=== PATIENT | female | born 1990 | race Two or more races ===

== ENCOUNTER 2023-05-04 15:15 | Emergency (ER) | payer MEDICAID ==
[~2023-05-04] VITALS: Ht 162.6 cm; Wt 54.4 kg
--- NOTE | 2023-05-04 15:45 | NUR ---
lolis, from [place], admits on drinking alcohol this morning, BG 103
[2023-05-04] MEDS ORDERED: IV NS 0.9% 1,000 ML BAG IV ONE (17:00)
--- NOTE | 2023-05-04 17:40 | NUR ---
IV LINE AT RIGHT AC 20 G , INFUSING WELL
[2023-05-04 17:51] LABS: BASOPHILS % (AUTO) 0.2 % (0.0-2.0); EOSINOPHILS % (AUTO) 0.7 % (0.0-6.0); HEMATOCRIT 40 % (33-45); HEMOGLOBIN 13.4 g/dL (11.5-14.8); LYMPHOCYTES # (AUTO) 2.1 K/uL (0.8-4.8); LYMPHOCYTES % (AUTO) 23.2 % (20.0-44.0); MEAN CORPUSCULAR HGB CONC 33 g/dl (31.0-36.0); MEAN CORPUSCULAR VOLUME 87 fL (82-100); MONOCYTES # (AUTO) 0.5 K/uL (0.1-1.30); MONOCYTES % (AUTO) 5.1 % (2.0-12.0); NEUTROPHILS # (AUTO) 6.4 K/uL (1.8-8.9); NEUTROPHILS % (AUTO) 70.8 % (43.0-81.0); PLATELET COUNT (AUTO) 271 K/uL (150-450); RED BLOOD CELL COUNT(AUTO) 4.59 MIL/uL (4.0-5.2)
[2023-05-04 18:02] LABS: CALCIUM, SERUM 8.7 mg/dL (8.5-10.1); CARBON DIOXIDE 28 mmol/L (21-32); CHLORIDE 106 mmol/L (98-107); GLUCOSE 93 mg/dL (74-106); POTASSIUM 3.5 mmol/L (3.5-5.1); SODIUM SERUM 144 mmol/L (136-145); UREA NITROGEN, BLOOD 7 mg/dL (7-18)
[2023-05-04 18:10] LABS: ALANINE AMINOTRANSFERASE 21 U/L (12-78); ALBUMIN 3.6 g/dL (3.4-5.0); ALCOHOL, BLOOD 182 mg/dL (0-10); ALKALINE PHOSPHATASE 94 U/L (46-116); ASPARTATE AMINOTRANSFERASE 15 U/L (15-37); BILIRUBIN,DIRECT 0.1 mg/dL (0.0-0.2); BILIRUBIN,TOTAL 0.3 mg/dL (0.2-1.0); LIPASE 118 U/L (73-393); TOTAL PROTEIN, SERUM 7.2 g/dL (6.4-8.2)
--- NOTE | 2023-05-04 19:30 | NUR ---
RN NOTE RECEIVED PT FOR ROSA MARIA, PT IN BED, ASLEEP. NO S/SX OF ACUTE RESPI DISTRESS NOTED AT THIS TIME. NO SOB. BREATHING IS EVEN AND UNLABORED. WILL CONTINUE TO MONITOR.
--- NOTE | 2023-05-05 02:06 | NUR ---
Patient discharged to home in stable condition. Written and verbal after care instructions given. Patient verbalizes understanding of instruction.
--- NOTE | 2023-05-05 02:06 | NUR ---
IV removed. Catheter intact and site benign. Pressure and 4x4 applied to site. No bleeding noted.
[2023-05-05 02:07] VITALS: BP 118/74
== END 2023-05-05 02:07 | disposition home or self-care (01) ==
LOC: ER 15:17
DX: F10.129 Alcohol abuse with intoxication, unspecified (principal); R41.82 Altered mental status, unspecified; F31.9 Bipolar disorder, unspecified; F20.9 Schizophrenia, unspecified; Y90.6 Blood alcohol level of 120-199 mg/100 ml
CPT/HCPCS: 99283; 96360; 85025; 80048; 83690; 80076; 36415; 84702; 80143; 80320; J7030; G0480